=== PATIENT | female | born 1950 | race Caucasian/White ===

== ENCOUNTER 2018-12-28 05:35 | Day surgery (SDC) | payer MEDICARE, OTHER ==
[~2018-12-28] VITALS: Ht 172.7 cm; Wt 92.5 kg
[~2018-12-28 05:35] MED LIST: CARAFATE1 G PO; CELEXA40 MG; LEVOTHYROXINE100 MCG; LIPITOR20 MG PO; LISINOPRIL-HCT1 EAC7; NEURONTIN600 MG PO; PEPCID40 MG; ROPINIROLE HCL1 MG
[2018-12-28 06:15] LABS: CALC OSMOLALITY 279 mosm/kg (275-300); CALCIUM 9.4 mg/dL (8.5-10.1); CHLORIDE - SERUM 103 mmol/L (98-107); CREATININE - SERUM 0.7 mg/dL (0.6-1.3); GLUCOSE 96 mg/dL (74-106); SODIUM 140 mmol/L (136-145); UREA NITROGEN 14 mg/dL (7-18); eGFR NON AFRICAN AMERICAN 88 mL/min (90-120)
[2018-12-28 06:52] LABS: HEMATOCRIT 43.9 % (36.0-48.0); HEMOGLOBIN 14.8 g/dL (12-16); MCH 33.3 pg (26.0-34.0); MCHC 33.7 g/dL (31.0-37.0); MCV 98.7 fL (80.0-100.0); MEAN PLATELET VOLUME 9.6 fL (7.4-10.4); RBC 4.45 10x6/uL (4.00-5.40); RDW 12.6 % (11.5-14.5); WBC 4.6 10x3/uL (4.8-10.8)
[2018-12-28 07:33] VITALS: BP 119/83; Ht 172.7 cm; Wt 92.5 kg
--- NOTE | 2018-12-28 10:00 | NUR ---
PT HAS C/O OF PAIN IN HER LEGS. I ASKED IF SHE COULD TELL ME WHERE ON HER LEGS THAT SHE IS HURTING. PT VOICED"MY CALVES". I OBSERVED HER CALVES AND SEE NO REDDNESS,OR SWELLING. I ASKED IF SHE COULD TELL ME WHERE ON HER CALVES SHE IS HURTING AND SHE VOICED THE RIGHT CALF ON THE LEFT SIDE. I ASKED IF SHE HAS PAIN NORMALY ON HER CALF AND SHE VOICED "I JUST GOT BACK FROM [place] AND I WALKED ALOT AND IT HAS BEEN HURTING SINCE THEN". I VOICED TO PT THAT I SEE NO REDNESS OR SWELLING BUT SHE NEEDS TO MONITOR HER LEGS TO MAKE SURE THAT THE PAIN DOES NOT GET WORSE AND IF SHE SEES ANY REDNESS OR INCREASED SWELLING TO LET HER DOCTOR KNOW ANA CRISTINA. PT VOICED UNDERSTANDING.
--- NOTE | 2019-01-01 17:43 | OP ---
PATIENT NAME: KLAUDIA COTTRELL MEDICAL RECORD: [id number] :46 LOCATION:[facility] ADMISSION DATE: SURGEON: CHARLIE CAMPOS MD DATE OF OPERATION: 12/28/2018 PREOPERATIVE DIAGNOSIS: Anal mass. POSTOPERATIVE DIAGNOSIS: Anal mass. PROCEDURE: Transanal excision of anal mass. SURGEON: Charlie Campos MD MEDICAL OFFICE ADMINISTRATOR: None. BLOOD LOSS: Minimal. ANESTHESIA: General. COMPLICATIONS: None. The risks, possible complications, and alternatives to the procedure were explained to the patient. She elects to proceed. The discussion specifically included, but was not limited to, bleeding requiring emergency reoperation, infection, recurrence of the mass as well as persistence. OPERATIVE COURSE: The patient was seen in the holding area. The planned operative procedure was discussed with the patient. She was conveyed to the operating room. General anesthesia was induced by the anesthesia staff. The patient was placed in the lithotomy position with the buttocks taped laterally. The anus and perianal areas were sterilely prepped and draped. U-shaped anal retractors were placed. There was some enlargement of a few internal hemorrhoids. Not really much internal hemorrhoidal prolapse. At the 5 o'clock position, there was a skin tag associated with an enlarged external hemorrhoid. I think this is the lesion that Dr. Jacobs had been seeing during her endoscopy. Utilizing the Harmonic scalpel, I excised the skin tag as well as the hemorrhoidal tissue. Submucosal flaps were created sharply. I then closed the wound with a running locking 3-0 Vicryl suture for the anal mucosa and then I ran this out on to the anoderm and tied. There was 1 anal papilla, which I cauterized. A few larger internal hemorrhoids that were cauterized as well. A combination of steriod preparation and Marcaine were used to infiltrate the perianal tissues. Gelfoam was applied within the anus and lower rectum. Americaine was applied to the external hemorrhoids. The patient was then extubated and conveyed to the post-anesthesia care unit where she was in stable condition. She was dismissed home on hydrocodone, Colace as well as Valium. I will see her in the office in 2-3 weeks. 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 OPERATIVE REPORT [id number] KLAUDIA COTTRELL, CHARLIE ROA at 1743 CC: CHRIS KAPLAN and RICARDA JACOBS [id number] DICTATION DATE: 12/31/18 1129 ADMINISTRATIVE SERVICES MANAGER: 12/31/18 1252 [facility] 12/28/18 [id number] [place] [address]
== END 2018-12-28 12:00 | disposition home or self-care (01) ==
LOC: D.OPS 05:35 → D.PAN 08:00 → D.OPS 08:00
PROVIDERS: Anesthesiology; ATTEND Surgery
DX: K62.9 Disease of anus and rectum, unspecified (principal)